=== PATIENT | female | born 1950 | race Caucasian/White ===

== ENCOUNTER → 2017-01-07 | Outpatient (CLI) | payer MEDICARE, MEDICAID | LOC: RAD 10:11 | PROVIDERS: ATTEND Internal Medicine | DX: N18.9 Chronic kidney disease, unspecified (principal) | CPT/HCPCS: 76770 ==

== ENCOUNTER 2017-01-14 09:33 | Emergency (ER) | payer MEDICARE, MEDICAID ==
--- NOTE | 2017-01-14 10:33 | ER Document Report ---
ED Medical Screen (RME) - General Chief Complaint: Abdominal Pain Stated Complaint: ABDOMINAL PAIN Notes: Patient says that she's been experiencing pain in the right side of her abdomen since yesterday and it's getting worse. She denies nausea or vomiting or diarrhea. Has never had this particular pain before. Has not had any abdominal surgeries. No UTI symptoms. No fevers. PMH: Hypertension, NIDDM, on methadone. TRAVEL OUTSIDE OF THE [place] IN LAST 30 DAYS: No - Related Data Allergies/Adverse Reactions: tetracycline [Tetracycline] Allergy (Intermediate, Verified 01/14/17 09:50) VOMITING,DIZZINESS hydroxyzine HCl [From Vistaril] Allergy (Mild, Verified 01/14/17 09:50) ITHCY hydroxyzine pamoate [From Vistaril] Allergy (Mild, Verified 01/14/17 09:50) ITHCY SHELL FISH Allergy (Severe, Uncoded 01/14/17 09:50) Anaphylaxis FLU VACCINE Allergy (Mild, Uncoded 01/14/17 09:50) SICK Past Medical History - Past Medical History Cardiac Medical History: Reports: Hx Hypertension Denies: Hx Coronary Artery Disease, Hx Heart Attack Pulmonary Medical History: Reports: Hx Asthma, Hx Pneumonia - ABOUT 10 YEARS AGO Denies: Hx Bronchitis, Hx COPD Neurological Medical History: Denies: Hx Cerebrovascular Accident, Hx Seizures Renal/ Medical History: Denies: Hx Peritoneal Dialysis Musculoskeltal Medical History: Reports Hx Arthritis Past Surgical History: Denies: Hx Hysterectomy, Hx Pacemaker - Immunizations Hx Diphtheria, Pertussis, Tetanus Vaccination: No Physical Exam - Vital signs Vitals: Temp Pulse Resp BP Pulse Ox 98.2 F 79 20 132/84 H 97 01/14/17 09:50 01/14/17 09:50 01/14/17 09:50 01/14/17 09:50 01/14/17 09:50 Course - Vital Signs Vital signs: Temp Pulse Resp BP Pulse Ox 98.2 F 79 20 132/84 H 97 01/14/17 09:50 01/14/17 09:50 01/14/17 09:50 01/14/17 09:50 01/14/17 09:50
[2017-01-14 11:00] LABS: ABSOLUTE BASOPHILS # (AUTO) 0.1 10^3/uL (0.0-0.2); ABSOLUTE EOSINOPHILS # (AUTO) 0.2 10^3/uL (0.0-0.6); ABSOLUTE LYMPHOCYTES (AUTO) 3.3 10^3/uL (0.5-4.7); ABSOLUTE MONOCYTES (AUTO) 0.6 10^3/uL (0.1-1.4); ABSOLUTE NEUT (AUTO) 5.7 10^3/uL (1.7-8.2); BASOPHILS % (AUTO) 0.8 % (0-2); EOSINOPHILS % (AUTO) 2.4 % (0-6); HEMATOCRIT 39.9 % (36.0-47.0); HEMOGLOBIN 12.7 g/dL (12.0-15.5); HGB HCT DIFFERENCE -1.8; LYMPHOCYTES % (AUTO) 33.6 % (13-45); MEAN CORPUSCULAR HEMOGLOBIN 25.4 pg (27.0-33.4); MEAN CORPUSCULAR HGB CONC 31.8 g/dL (32.0-36.0); MEAN CORPUSCULAR VOLUME 80 fl (80-97); MONOCYTES % (AUTO) 6.1 % (3-13); RED CELL DISTRIBUTION WIDTH 16.2 % (11.5-14.0); SEGMENTED NEUTROPHILS % (AUTO) 57.1 % (42-78)
[2017-01-14 11:08] LABS: APPEARANCE,URINE CLEAR; BILIRUBIN,URINE NEGATIVE (NEGATIVE); GLUCOSE, URINE >=500 mg/dL (NEGATIVE); KETONES,URINE NEGATIVE (NEGATIVE); LEUKOCYTE ESTERASE,URINE NEGATIVE (NEGATIVE); NITRITE,URINE NEGATIVE (NEGATIVE); PROTEIN,URINE NEGATIVE (NEGATIVE); URINE SPECIFIC GRAVITY 1.012; UROBILINOGEN,URINE NEGATIVE mg/dL (<2.0)
[2017-01-14 11:15] LABS: ALANINE AMINOTRANSFERASE 39 U/L (9-52); ALBUMIN 4.2 g/dL (3.5-5.0); ALKALINE PHOSPHATASE 85 U/L (38-126); ANION GAP 17 (5-19); ASPARTATE AMINO TRANSFERASE 36 U/L (14-36); BILIRUBIN,DIRECT 0.3 mg/dL (0.0-0.4); BILIRUBIN,TOTAL 0.6 mg/dL (0.2-1.3); BLOOD UREA NITROGEN 30 mg/dL (7-20); CALCIUM 9.8 mg/dL (8.4-10.2); CARBON DIOXIDE 24 mmol/L (22-30); CHLORIDE 102 mmol/L (98-107); CREATININE RESULT 1.47 mg/dL (0.52-1.25); GLUCOSE 177 mg/dL (75-110); LIPASE 71.8 U/L (23-300); POTASSIUM 4.7 mmol/L (3.6-5.0); SODIUM 143.1 mmol/L (137-145); TOTAL PROTEIN 7.7 g/dL (6.3-8.2)
[2017-01-14] MEDS ORDERED: NORMAL SALINE 500 ML IV ONE (13:06)
--- NOTE | 2017-01-14 13:06 | ER Document Report ---
ED GI/ - General Mode of Arrival: Ambulatory Information source: Patient TRAVEL OUTSIDE OF THE [place] IN LAST 30 DAYS: No - HPI Patient complains to provider of: Abdominal pain - right sided Onset: Yesterday - y Location: RLQ, Right flank, Suprapubic Associated symptoms: Other - see notes above <DAVID HUNG - Last Filed: 01/14/17 17:16> <GARETH AVILA - Last Filed: 01/14/17 19:39> - General Chief Complaint: Abdominal Pain Stated Complaint: ABDOMINAL PAIN Notes: 67 year old female with no history of an abdominal surgery presents to the ED complaining of right sided abdominal pain that has gotten progressively worse since starting yesterday. Patient reports pain starts from her right supapubic region and wraps around to her right flank. Patient reports that the pain is exacerbated with movement, but not with standing. Patient reports her stool is looser than normal, but denies nausea, vomiting, fever, or dysuria. (DAVID HUNG) - Related Data Allergies/Adverse Reactions: tetracycline [Tetracycline] Allergy (Intermediate, Verified 01/14/17 09:50) VOMITING,DIZZINESS hydroxyzine HCl [From Vistaril] Allergy (Mild, Verified 01/14/17 09:50) ITHCY hydroxyzine pamoate [From Vistaril] Allergy (Mild, Verified 01/14/17 09:50) ITHCY SHELL FISH Allergy (Severe, Uncoded 01/14/17 09:50) Anaphylaxis FLU VACCINE Allergy (Mild, Uncoded 01/14/17 09:50) SICK Past Medical History - General Information source: Patient - Social History Smoking Status: Current Every Day Smoker Chew tobacco use (# tins/day): No Frequency of alcohol use: Rare Drug Abuse: None Family History: Reviewed & Not Pertinent Patient has suicidal ideation: No Patient has homicidal ideation: No - Past Medical History Cardiac Medical History: Reports: Hx Hypertension Pulmonary Medical History: Reports: Hx Asthma, Hx Pneumonia - ABOUT 10 YEARS AGO Renal/ Medical History: Denies: Hx Peritoneal Dialysis Musculoskeltal Medical History: Reports Hx Arthritis Past Surgical History: Denies: Hx Abdominal Surgery, Hx Hysterectomy, Hx Pacemaker - Immunizations Hx Diphtheria, Pertussis, Tetanus Vaccination: No Hx Pneumococcal Vaccination: 08/14/12 <DAVID HUNG - Last Filed: 01/14/17 17:16> Review of Systems - Review of Systems Constitutional: No symptoms reported. denies: Fever EENT: No symptoms reported Cardiovascular: No symptoms reported Respiratory: No symptoms reported Gastrointestinal: See HPI, Abdominal pain - right suprapubic that radiates to right flank, Diarrhea - looser than normal bowel movements. denies: Nausea, Vomiting Genitourinary: See HPI, Flank pain - right. denies: Dysuria Female Genitourinary: No symptoms reported Musculoskeletal: No symptoms reported Skin: No symptoms reported Hematologic/Lymphatic: No symptoms reported Neurological/Psychological: No symptoms reported -: Yes All other systems reviewed and negative <DAVID HUNG - Last Filed: 01/14/17 17:16> Physical Exam - General General appearance: Alert In distress: None - HEENT Head: Normocephalic, Atraumatic Eyes: Normal Extraocular movements intact: Yes Pupils: PERRL - Respiratory Respiratory status: No respiratory distress Breath sounds: Normal - Cardiovascular Rhythm: Regular Heart sounds: Normal auscultation - Abdominal Inspection: Normal Distension: No distension Tenderness: Tender - Right pelvis and SI joint is tender to palpate. - Back Back: Normal - Extremities General upper extremity: Normal inspection, Normal ROM General lower extremity: Normal inspection, Normal ROM, Normal weight bearing - Neurological Neuro grossly intact: Yes Cognition: Normal Orientation: AAOx4 Gerda Coma Scale Eye Opening: Spontaneous Tyler Coma Scale Verbal: Oriented Gerda Coma Scale Motor: Obeys Commands Gerda Coma Scale Total: 15 Speech: Normal - Psychological Associated symptoms: Normal affect, Normal mood - Skin Skin Temperature: Warm Skin Moisture: Dry Skin Color: Normal <DAVID HUNG - Last Filed: 01/14/17 17:16> Course - Laboratory Result Diagrams: 01/14/17 10:35 01/14/17 10:35 <DAVID HUNG - Last Filed: 01/14/17 17:16> - Laboratory Result Diagrams: 01/14/17 10:35 01/14/17 10:35 - Diagnostic Test Radiology reviewed: Reports reviewed <GARETH AVILA - Last Filed: 01/14/17 19:39> - Re-evaluation Re-evalutation: 01/14/17 14:46 Patient with no acute findings on blood work, urine, or CT. Appears well. Patient is going to go home and follow-up with her doctor. Stable for discharge. Patient feels well at this time. She is having pain with movement. Will be given a dose of Toradol prior to going home. Agrees with this plan (GARETH AVILA) - Vital Signs Vital signs: Temp Pulse Resp BP Pulse Ox 98.4 F 63 17 134/64 H 96 01/14/17 15:27 01/14/17 15:27 01/14/17 09:52 01/14/17 15:27 01/14/17 15:27 - Laboratory Laboratory results interpreted by me: 01/14/17 01/14/17 01/14/17 10:35 10:35 10:35 MCH 25.4 L MCHC 31.8 L RDW 16.2 H BUN 30 H Creatinine 1.47 H Est GFR ( Amer) 43 L Est GFR (Non-Af Amer) 35 L Glucose 177 H Urine Glucose (UA) >=500 H Discharge <DAVID HUNG - Last Filed: 01/14/17 17:16> <GARETH AVILA - Last Filed: 01/14/17 19:39> - Discharge Clinical Impression: Back pain Qualifiers: Back pain location: low back pain Chronicity: acute Back pain laterality: right Sciatica presence: without sciatica Qualified Code(s): M54.5 - Low back pain Abdominal pain Qualifiers: Abdominal location: right lower quadrant Qualified Code(s): R10.31 - Right lower quadrant pain Condition: Stable Disposition: HOME, SELF-CARE Instructions: Abdominal Pain ([facility]), Low Back Pain ([facility]) Additional Instructions: Please follow-up with your doctor this week. Referrals: RODRIGUEZ MENG MD [Primary Care Provider] - Follow up in 3-5 days Scribe Attestation: 01/14/17 19:39 I personally performed the services described in the documentation, reviewed and edited the documentation which was dictated to the scribe in my presence, and it accurately records my words and actions. (GARETH AVILA) Scribe Documentation - Scribe Written by Scribe:: Parish Liriano, 01/14/2017 1311 acting as scribe for :: Davie <DAVID HUNG - Last Filed: 01/14/17 17:16>
[2017-01-14] MEDS ORDERED: KETOROLAC TROMETHAMINE INJ/PF 30 MG/1 ML SDV IV ONE (15:09)
[2017-01-14 15:48] VITALS: BP 134/64
== END 2017-01-14 15:30 | disposition home or self-care (01) ==
LOC: ER 09:33
DX: R10.31 Right lower quadrant pain (principal); M54.5 Low back pain; R19.4 Change in bowel habit; I10 Essential (primary) hypertension; J45.909 Unspecified asthma, uncomplicated; F17.200 Nicotine dependence, unspecified, uncomplicated; Z88.1 Allergy status to other antibiotic agents; Z91.013 Allergy to seafood; Z88.8 Allergy status to other drugs, medicaments and biological substances
CPT/HCPCS: 99284; 96361; 96374; 36415; 83690; 85025; 80053; 81001; 74177; J1885

== ENCOUNTER → 2017-02-10 | Outpatient (CLI) | payer MEDICARE, MEDICAID | LOC: RAD 07:21 | PROVIDERS: ATTEND Internal Medicine | DX: R94.4 Abnormal results of kidney function studies (principal) | CPT/HCPCS: 76770 ==

== ENCOUNTER → 2017-06-17 | Outpatient (CLI) | payer MEDICARE, MEDICAID ==
--- NOTE | 2017-06-17 13:52 | EKG REPORT ---
SEVERITY:- NORMAL ECG - SINUS RHYTHM : Confirmed by: Sal Morel MD 17-Jun-2017 13:51:44
== END ==
LOC: OD 09:55
PROVIDERS: ATTEND Physician Assistant
DX: Z51.81 Encounter for therapeutic drug level monitoring (principal); Z79.891 Long term (current) use of opiate analgesic
CPT/HCPCS: 93005; 93010

== ENCOUNTER 2018-03-29 02:07 | Emergency (ER) | payer MEDICARE, MEDICAID ==
[2018-03-29 02:33] VITALS: BP 169/74
--- NOTE | 2018-03-29 03:02 | RADIOLOGY REPORT (SQ) ---
EXAM DESCRIPTION: XR FOOT 3 OR MORE VIEWS COMPLETED DATE/TME: 03/29/2018 00:00 CLINICAL HISTORY: 68 years Female, Pain s/p injury COMPARISON: None. Findings: Small plantar fascial enthesophyte. Bones, joints, and soft tissues of the XR LEFT FOOT 3 OR MORE VIEWS appear otherwise intact. IMPRESSION: No acute findings.
--- NOTE | 2018-03-29 05:58 | ER Document Report ---
ED Extremity Problem, Lower - General Chief Complaint: Foot Pain Stated Complaint: FOOT PAIN Time Seen by Provider: 03/29/18 05:39 Mode of Arrival: Ambulatory Information source: Patient Notes: Patient is a 68-year-old female who presents with complaint of left foot pain. Patient reports that the pain has been present for about 2 days and has associated bruising. Patient reports that she has short-term memory loss that she is unsure if she injured her foot. Patient is able to bear weight and is ambulating around the lobby. TRAVEL OUTSIDE OF THE [place] IN LAST 30 DAYS: No - Related Data Allergies/Adverse Reactions: tetracycline [Tetracycline] Allergy (Intermediate, Verified 01/14/17 09:50) VOMITING,DIZZINESS hydroxyzine HCl [From Vistaril] Allergy (Mild, Verified 01/14/17 09:50) ITHCY hydroxyzine pamoate [From Vistaril] Allergy (Mild, Verified 01/14/17 09:50) ITHCY SHELL FISH Allergy (Severe, Uncoded 01/14/17 09:50) Anaphylaxis FLU VACCINE Allergy (Mild, Uncoded 01/14/17 09:50) SICK Past Medical History - General Information source: Patient - Social History Smoking Status: Current Every Day Smoker Frequency of alcohol use: None Drug Abuse: None Family History: Reviewed & Not Pertinent - Past Medical History Cardiac Medical History: Reports: Hx Hypertension Denies: Hx Coronary Artery Disease, Hx Heart Attack Pulmonary Medical History: Reports: Hx Asthma, Hx Pneumonia - ABOUT 10 YEARS AGO Denies: Hx Bronchitis, Hx COPD Neurological Medical History: Denies: Hx Cerebrovascular Accident, Hx Seizures Endocrine Medical History: Reports: Hx Diabetes Mellitus Type 2 Renal/ Medical History: Denies: Hx Peritoneal Dialysis Musculoskeltal Medical History: Reports Hx Arthritis Past Surgical History: Denies: Hx Abdominal Surgery, Hx Hysterectomy, Hx Pacemaker - Immunizations Hx Diphtheria, Pertussis, Tetanus Vaccination: No Hx Pneumococcal Vaccination: 08/14/12 Review of Systems - Review of Systems Constitutional: No symptoms reported EENT: No symptoms reported Cardiovascular: No symptoms reported Respiratory: No symptoms reported Gastrointestinal: No symptoms reported Genitourinary: No symptoms reported Female Genitourinary: No symptoms reported Musculoskeletal: See HPI Skin: No symptoms reported Hematologic/Lymphatic: No symptoms reported Neurological/Psychological: No symptoms reported Physical Exam - Vital signs Vitals: Temp Pulse Resp BP Pulse Ox 99.9 F 105 H 20 169/74 H 95 03/29/18 02:31 03/29/18 02:31 03/29/18 02:03/29/18 02:03/29/18 02:31 - Notes Notes: PHYSICAL EXAMINATION: GENERAL: No acute distress noted, patient ambulating in and out of lobby with steady gait. LUNGS: Breath sounds clear to auscultation bilaterally and equal. No wheezes rales or rhonchi. HEART: Regular rate and rhythm without murmurs ABDOMEN: Soft, nontender, nondistended abdomen. No guarding, no rebound. No masses appreciated. Musculoskeletal: Normal range of motion, no pitting or edema. No cyanosis. Ecchymosis to left foot near medial malleolus. NEUROLOGICAL: Cranial nerves grossly intact. Normal speech, normal and steady gait. Normal sensory, motor exams PSYCH: Normal mood, normal affect. SKIN: Warm, Dry, normal turgor, no rashes or lesions noted. Course - Re-evaluation Re-evalutation: Patient's x-ray is negative for any acute fracture or dislocation. Patient currently rates pain 1/5. Cap refill less than 3 seconds, normal sensory and motor exams distal to area of ecchymosis. Patient will be given Isaiah wrap, ibuprofen will be instructed to use ice and elevation. Patient reports that she has an appointment for later this morning with Dr. Meng she has not seen him in 7 months. Patient is ambulating around the department with no distress. - Vital Signs Vital signs: Temp Pulse Resp BP Pulse Ox 99.9 F 105 H 20 169/74 H 95 03/29/18 02:31 03/29/18 02:31 03/29/18 02:03/29/18 02:03/29/18 02:31 Discharge - Discharge Clinical Impression: Foot pain, left Condition: Stable Disposition: HOME, SELF-CARE Additional Instructions: Foot Pain. Your xray today was normal. Use an isaiah wrap for comfort and support as needed. Take ibuprofen for pain and/or inflammation. Epsom salt soaks twice daily. Follow-up with your primary care provider this week as you have stated you are out of your medications and have not seen your primary care doctor in 7 months. Return to the emergency department if you develop leg swelling, chest pain or shortness of breath. Prescriptions: Ibuprofen 800 mg PO Q8 PRN #20 tablet PRN Reason: For Pain Referrals: RODRIGUEZ MENG MD [Primary Care Provider] - Follow up as needed
== END 2018-03-29 06:19 | disposition home or self-care (01) ==
LOC: ER 02:07
DX: M79.672 Pain in left foot (principal); F17.200 Nicotine dependence, unspecified, uncomplicated; I10 Essential (primary) hypertension; E11.9 Type 2 diabetes mellitus without complications; Z88.7 Allergy status to serum and vaccine; Z91.013 Allergy to seafood; Z90.710 Acquired absence of both cervix and uterus; Z95.0 Presence of cardiac pacemaker
CPT/HCPCS: 99283

== ENCOUNTER 2018-03-31 12:15 | Observation (INO) | payer MEDICARE, MEDICAID ==
[2018-03-31] MEDS: NORMAL SALINE 1000 ML 1,000 ML IV PRN ×2 (13:15→18:48)
[2018-03-31 14:17] LABS: HEMATOCRIT 38.8 % (36.0-47.0); HEMOGLOBIN 12.7 g/dL (12.0-15.5); MEAN CORPUSCULAR HEMOGLOBIN 26.6 pg (27.0-33.4); MEAN CORPUSCULAR HGB CONC 32.7 g/dL (32.0-36.0); MEAN CORPUSCULAR VOLUME 81 fl (80-97); PLATELET COUNT 213 10^3/uL (150-450); RED BLOOD COUNT 4.77 10^6/uL (3.72-5.28); WHITE BLOOD COUNT 11.2 10^3/uL (4.0-10.5)
[2018-03-31 14:38] LABS: ALANINE AMINOTRANSFERASE 35 U/L (9-52); ALBUMIN 4.2 g/dL (3.5-5.0); ALKALINE PHOSPHATASE 120 U/L (38-126); ANION GAP 15 (5-19); ASPARTATE AMINO TRANSFERASE 26 U/L (14-36); BILIRUBIN,DIRECT 0.5 mg/dL (0.0-0.4); BILIRUBIN,TOTAL 0.6 mg/dL (0.2-1.3); BLOOD UREA NITROGEN 27 mg/dL (7-20); CALCIUM 9.3 mg/dL (8.4-10.2); CARBON DIOXIDE 22 mmol/L (22-30); CHLORIDE 100 mmol/L (98-107); LIPASE 123.9 U/L (23-300); POTASSIUM 4.7 mmol/L (3.6-5.0); TOTAL PROTEIN 7.3 g/dL (6.3-8.2)
[2018-03-31 14:44] LABS: GLUCOSE 392 mg/dL (75-110)
[2018-03-31] MEDS ORDERED: DEXTROSE 50%-WATER SYRINGE 25 GM/50 ML DOSE IV PRN (15:01)
[2018-03-31] MEDS ORDERED: DEXTROSE 40% GEL 15 GM TUBE X 2 PO PRN (15:01)
[2018-03-31] MEDS ORDERED: DEXTROSE 40% GEL 15 GM TUBE PO PRN (15:01)
[2018-03-31] MEDS ORDERED: DEXTROSE 50%-WATER SYRINGE 12.5 GM/25 ML DOSE IV PRN (15:01)
[2018-03-31] MEDS ORDERED: GLUCAGON,HUMAN RECOMB 1 MG INJ IM PRN (15:01)
--- NOTE | 2018-03-31 15:40 | RADIOLOGY REPORT (SQ) ---
EXAM DESCRIPTION: CHEST 2 VIEWS COMPLETED DATE/TIME: 03/31/2018 3:20 pm REASON FOR STUDY: cough COMPARISON: 07/10/2016 EXAM PARAMETERS: NUMBER OF VIEWS: two views TECHNIQUE: Digital Frontal and Lateral radiographic views of the chest acquired. RADIATION DOSE: NA LIMITATIONS: none FINDINGS: LUNGS AND PLEURA: No opacities, masses or pneumothorax. No pleural effusion. MEDIASTINUM AND HILAR STRUCTURES: No masses or contour abnormalities. HEART AND VASCULAR STRUCTURES: Heart normal size. No evidence for failure. BONES: No acute findings. HARDWARE: None in the chest. OTHER: No other significant finding. IMPRESSION: NO ACUTE RADIOGRAPHIC FINDING IN THE CHEST. TECHNICAL DOCUMENTATION: JOB ID: [id number] [employer]- All Rights Reserved Reading location - IP/workstation name: [email or web address]
[2018-03-31] MEDS: INSULIN LISPRO 100 UNIT/ML 3 ML VIAL SUBCUT PRN ×2 (18:08→22:46)
[2018-03-31] MEDS ORDERED: CYCLOBENZAPRINE HCL 10 MG TABLET PO PRN (18:17)
[2018-03-31] MEDS ORDERED: (PENDING PHARMACY ID) (Magnesium Oxide [Magnesium] 500 MG) PO SCH (18:30)
[2018-03-31] MEDS ORDERED: MOEXIPRIL HCL 15 MG PO SCH (18:30)
[2018-03-31] MEDS ORDERED: (PENDING PHARMACY ID) (Dapagliflozin Propanediol [Farxiga] 10 MG) PO SCH ×2 (18:30→19:00)
[2018-03-31] MEDS ORDERED: NICOTINE POLACRILEX 2 MG PO SCH ×2 (19:00)
[2018-03-31] MEDS: METFORMIN HCL 500 MG TABLET PO SCH (19:54)
--- NOTE | 2018-03-31 21:18 | PDOC H&P ---
History of Present Illness Admission Date/PCP: 03/31/18 12:15 RODRIGUEZ MENG MD History of Present Illness: KRYSTAL ADORNO is a 68 year old female, Patient is noncompliant with her diabetic care, she came to the office for the first time this year for evaluation after she sustained a fall, the blood work revealed serum glucose was over 400, she is admitted essentially for hydration and for observation.There is associated acute kidney injury Past Medical History Cardiac Medical History: Reports: Hypertension Pulmonary Medical History: Reports: Asthma, Pneumonia - ABOUT 10 YEARS AGO Endocrine Medical History: Reports: Diabetes Mellitus Type 2 Musculoskeltal Medical History: Reports: Arthritis Hematology: Reports: Anemia - >40 YEARS AGO Social History Smoking Status: Current Some Day Smoker Number of Years Smokin Last Time Smoked: 03/30/2018 Frequency of Alcohol Use: Occasional Hx Recreational Drug Use: Yes Drugs: Methadone Hx Prescription Drug Abuse: No Family History Family History: Reviewed & Not Pertinent Parental Family History Reviewed: Yes Children Family History Reviewed: Yes Sibling(s) Family History Reviewed.: Yes Medication/Allergy Home Medications: Cholecalciferol (Vitamin D3) [Vitamin D3 5000 unit Capsule] 5,000 unit PO DAILY 03/31/18 Cyclobenzaprine HCl [Flexeril 10 mg Tablet] 10 mg PO DAILYP PRN 03/31/18 Dapagliflozin Propanediol [Farxiga] 10 mg PO DAILY 03/31/18 Glipizide [Glucotrol Xl 2.5 mg Tab.er] 2.5 mg PO DAILY 03/31/18 Hydrochlorothiazide [Hydrodiuril 25 mg Tablet] 25 mg PO DAILY 03/31/18 Magnesium Oxide [Magnesium] 500 mg PO DAILY 03/31/18 Metformin HCl [Glucophage 500 mg Tablet] 500 mg PO 5XD 03/31/18 Methadone HCl [Dolophine 10 mg Tablet] 50 mg PO DAILY 03/31/18 Moexipril HCl 15 mg PO [id number] 03/31/18 Nicotine Polacrilex [Nicotine Gum] 2 mg PO 5XD 03/31/18 Pregabalin [Lyrica 75 mg Capsule] 75 mg PO Q6 03/31/18 Sitagliptin Phosphate [Januvia] 100 mg PO DAILY 03/31/18 Allergies/Adverse Reactions: tetracycline [Tetracycline] Allergy (Intermediate, Verified 01/14/17 09:50) VOMITING,DIZZINESS hydroxyzine HCl [From Vistaril] Allergy (Mild, Verified 01/14/17 09:50) ITHCY hydroxyzine pamoate [From Vistaril] Allergy (Mild, Verified 01/14/17 09:50) ITHCY SHELL FISH Allergy (Severe, Uncoded 01/14/17 09:50) Anaphylaxis FLU VACCINE Allergy (Mild, Uncoded 01/14/17 09:50) SICK Review of Systems Constitutional: ABSENT: chills, fever(s), headache(s), weight gain, weight loss Eyes: ABSENT: visual disturbances Ears: ABSENT: hearing changes Cardiovascular: ABSENT: chest pain, dyspnea on exertion, edema, orthropnea, palpitations Respiratory: ABSENT: cough, hemoptysis Gastrointestinal: ABSENT: abdominal pain, constipation, diarrhea, hematemesis, hematochezia, nausea, vomiting Genitourinary: ABSENT: dysuria, hematuria Musculoskeletal: PRESENT: back pain. ABSENT: joint swelling Integumentary: ABSENT: rash, wounds Neurological: ABSENT: abnormal gait, abnormal speech, confusion, dizziness, focal weakness, syncope Psychiatric: ABSENT: anxiety, depression, homidical ideation, suicidal ideation Endocrine: PRESENT: polyuria. ABSENT: cold intolerance, heat intolerance, menstrual abnormalities, polydipsia Hematologic/Lymphatic: ABSENT: easy bleeding, easy bruising, lymphadenopathy Physical Exam Vital Signs: Temp Pulse Resp BP Pulse Ox 98.4 F 92 16 126/60 H 93 03/31/18 16:07 03/31/18 16:07 03/31/18 16:07 03/31/18 16:07 03/31/18 16:07 Intake & Output 03/30/18 03/31/18 04/01/18 06:59 06:59 06:59 Intake Total 737 Balance 737 Weight 88.451 kg General appearance: PRESENT: no acute distress, well-developed, well-nourished Head exam: PRESENT: atraumatic, normocephalic Eye exam: PRESENT: conjunctiva pink, EOMI, PERRLA Ear exam: PRESENT: normal external ear exam Mouth exam: PRESENT: moist, tongue midline Neck exam: PRESENT: full ROM Respiratory exam: PRESENT: clear to auscultation valaire Cardiovascular exam: PRESENT: RRR, +S1, +S2 Pulses: PRESENT: normal dorsalis pedis pul, +2 pedal pulses bilateral Vascular exam: PRESENT: normal capillary refill GI/Abdominal exam: PRESENT: normal bowel sounds, soft Rectal exam: PRESENT: deferred Neurological exam: PRESENT: alert, awake, oriented to person, oriented to place , oriented to time, oriented to situation, CN II-XII grossly intact Psychiatric exam: PRESENT: appropriate affect, normal mood Skin exam: PRESENT: dry, intact, warm Results Laboratory Results: 03/31/18 14:03 03/31/18 14:03 03/31/18 03/31/18 14:03 14:03 WBC 11.2 H RBC 4.77 Hgb 12.7 Hct 38.8 MCV 81 MCH 26.6 L MCHC 32.7 RDW 15.0 H Plt Count 213 Sodium 137.0 Potassium 4.7 Chloride 100 Carbon Dioxide 22 Anion Gap 15 BUN 27 H Creatinine 1.50 H Est GFR ( Amer) 42 L Est GFR (Non-Af Amer) 34 L Glucose 392 H Calcium 9.3 Total Bilirubin 0.6 AST 26 ALT 35 Alkaline Phosphatase 120 Total Protein 7.3 Albumin 4.2 Lipase 123.9 Impressions: Chest X-Ray 03/31/18 00:00 IMPRESSION: NO ACUTE RADIOGRAPHIC FINDING IN THE CHEST. 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
[2018-03-31] MEDS: PREGABALIN 75 MG CAPSULE PO SCH (22:43)
[2018-04-01] MEDS: NORMAL SALINE 1000 ML 1,000 ML IV PRN ×3 (06:38→20:21)
[2018-04-01] MEDS: PREGABALIN 75 MG CAPSULE PO SCH ×3 (06:42→17:49)
[2018-04-01] MEDS: METFORMIN HCL 500 MG TABLET PO SCH ×5 (07:40→19:36)
[2018-04-01] MEDS: ENALAPRIL MALEATE 10 MG TABLET PO SCH (08:50)
[2018-04-01 09:22] LABS: ALANINE AMINOTRANSFERASE 36 U/L (9-52); ALBUMIN 2.9 g/dL (3.5-5.0); ALKALINE PHOSPHATASE 81 U/L (38-126); ANION GAP 6 (5-19); ASPARTATE AMINO TRANSFERASE 41 U/L (14-36); BILIRUBIN,DIRECT 0.4 mg/dL (0.0-0.4); BILIRUBIN,TOTAL 0.5 mg/dL (0.2-1.3); BLOOD UREA NITROGEN 25 mg/dL (7-20); CALCIUM 8.4 mg/dL (8.4-10.2); CARBON DIOXIDE 28 mmol/L (22-30); CHLORIDE 104 mmol/L (98-107); GLUCOSE 142 mg/dL (75-110); POTASSIUM 4.5 mmol/L (3.6-5.0); SODIUM 138.1 mmol/L (137-145); TOTAL PROTEIN 5.7 g/dL (6.3-8.2)
[2018-04-01] MEDS ORDERED: METHADONE HCL 10 MG TABLET PO SCH (10:00)
[2018-04-01] MEDS ORDERED: MAGNESIUM OXIDE 400 MG TABLET PO SCH (10:00)
[2018-04-01] MEDS ORDERED: GLIPIZIDE XL 2.5 MG TAB.ER.24 PO SCH (10:00)
[2018-04-01] MEDS ORDERED: SITAGLIPTIN PHOSPHATE 50 MG TABLET PO SCH (10:00)
[2018-04-01] MEDS ORDERED: CHOLECALCIFEROL (D3) 1,000 UNIT TABLET PO SCH (10:00)
[2018-04-01] MEDS ORDERED: HYDROCHLOROTHIAZIDE 25 MG TABLET PO SCH (10:00)
[2018-04-01] MEDS: INSULIN LISPRO 100 UNIT/ML 3 ML VIAL SUBCUT PRN ×2 (13:39→23:53)
[2018-04-01 19:05] LABS: ALANINE AMINOTRANSFERASE 39 U/L (9-52); ALBUMIN 3.4 g/dL (3.5-5.0); ALKALINE PHOSPHATASE 88 U/L (38-126); ANION GAP 8 (5-19); ASPARTATE AMINO TRANSFERASE 42 U/L (14-36); BILIRUBIN,DIRECT 0.4 mg/dL (0.0-0.4); BILIRUBIN,TOTAL 0.4 mg/dL (0.2-1.3); BLOOD UREA NITROGEN 24 mg/dL (7-20); CALCIUM 8.7 mg/dL (8.4-10.2); CARBON DIOXIDE 27 mmol/L (22-30); CHLORIDE 105 mmol/L (98-107); GLUCOSE 140 mg/dL (75-110); POTASSIUM 5.4 mmol/L (3.6-5.0); SODIUM 140.1 mmol/L (137-145); TOTAL PROTEIN 6.5 g/dL (6.3-8.2)
--- NOTE | 2018-04-01 21:16 | PDOC DISCHARGE SUMMARY ---
General - Admit/Disc Date/PCP Admission Date/Primary Care Provider: 03/31/18 12:15 RODRIGUEZ MENG MD Discharge Date: 04/01/18 - Discharge Diagnosis (1) Diabetes mellitus Is this a current diagnosis for this admission?: Yes - Additional Information Home Medications: Cholecalciferol (Vitamin D3) [Vitamin D3 5000 unit Capsule] 5,000 unit PO DAILY 03/31/18 Cyclobenzaprine HCl [Flexeril 10 mg Tablet] 10 mg PO DAILYP PRN 03/31/18 Dapagliflozin Propanediol [Farxiga] 10 mg PO DAILY 03/31/18 Glipizide [Glucotrol Xl 2.5 mg Tab.er] 2.5 mg PO DAILY 03/31/18 Hydrochlorothiazide [Hydrodiuril 25 mg Tablet] 25 mg PO DAILY 03/31/18 Magnesium Oxide [Magnesium] 500 mg PO DAILY 03/31/18 Metformin HCl [Glucophage 500 mg Tablet] 500 mg PO 5XD 03/31/18 Methadone HCl [Dolophine 10 mg Tablet] 50 mg PO DAILY 03/31/18 Moexipril HCl 15 mg PO [id number] 03/31/18 Nicotine Polacrilex [Nicotine Gum] 2 mg PO 5XD 03/31/18 Pregabalin [Lyrica 75 mg Capsule] 75 mg PO Q6 03/31/18 Sitagliptin Phosphate [Januvia] 100 mg PO DAILY 03/31/18 History of Present Illness History of Present Illness: KRYSTAL ADORNO is a 68 year old female, Patient is noncompliant with her diabetic care, she came to the office for the first time this year for evaluation after she sustained a fall, the blood work revealed serum glucose was over 400, she is admitted essentially for hydration and for observation.There is associated acute kidney injury Hospital Course Hospital Course: Patient was admitted for the management of uncontrolled diabetes associated with dehydration and acute kidney injury, she was brought in for observation she was given normal saline essentially for hydration Physical Exam Vital Signs: Temp Pulse Resp BP Pulse Ox 98.3 F 79 16 130/63 H 96 04/01/18 19:28 04/01/18 19:28 04/01/18 19:28 04/01/18 19:28 04/01/18 19:28 Intake & Output 03/31/18 04/01/18 04/02/18 06:59 06:59 06:59 Intake Total 1537 Balance 1537 Weight 93.7 kg General appearance: PRESENT: no acute distress, well-developed, well-nourished Head exam: PRESENT: atraumatic, normocephalic Eye exam: PRESENT: conjunctiva pink, EOMI, PERRLA Ear exam: PRESENT: normal external ear exam Mouth exam: PRESENT: moist, tongue midline Neck exam: PRESENT: full ROM Respiratory exam: PRESENT: clear to auscultation valarie Cardiovascular exam: PRESENT: RRR, +S1 Pulses: PRESENT: normal dorsalis pedis pul, +2 pedal pulses bilateral Vascular exam: PRESENT: normal capillary refill GI/Abdominal exam: PRESENT: normal bowel sounds, soft Rectal exam: PRESENT: deferred Neurological exam: PRESENT: alert, awake, oriented to person, oriented to place , oriented to time, oriented to situation, CN II-XII grossly intact Psychiatric exam: PRESENT: appropriate affect, normal mood Skin exam: PRESENT: dry, intact, warm. ABSENT: cyanosis, rash Results Laboratory Results: 03/31/18 14:03 04/01/18 18:25 04/01/18 04/01/18 08:44 18:25 Sodium 138.1 140.1 Potassium 4.5 5.4 H Chloride 104 105 Carbon Dioxide 28 27 Anion Gap 6 8 BUN 25 H 24 H Creatinine 1.57 H 1.39 H Est GFR ( Amer) 40 L 45 L Est GFR (Non-Af Amer) 33 L 38 L Glucose 142 H 140 H Calcium 8.4 8.7 Total Bilirubin 0.5 0.4 AST 41 H 42 H ALT 36 39 Alkaline Phosphatase 81 88 Total Protein 5.7 L 6.5 Albumin 2.9 L 3.4 L Impressions: Chest X-Ray 03/31/18 00:00 IMPRESSION: NO ACUTE RADIOGRAPHIC FINDING IN THE CHEST. Qualifiers - * PATIENT BEING DISCHARGED WITH ANY OF THE FOLLOWING DIAGNOSIS: No VTE patient discharged on overlapping Therapy?: Yes
[2018-04-02] MEDS: NORMAL SALINE 1000 ML 1,000 ML IV PRN (01:45)
[2018-04-02] MEDS: PREGABALIN 75 MG CAPSULE PO SCH ×2 (06:08)
[2018-04-02] MEDS: METFORMIN HCL 500 MG TABLET PO SCH (06:08)
[2018-04-02] MEDS: INSULIN LISPRO 100 UNIT/ML 3 ML VIAL SUBCUT PRN (08:04)
[2018-04-02] MEDS: ENALAPRIL MALEATE 10 MG TABLET PO SCH (08:04)
[2018-04-02 09:23] VITALS: BP 115/48
== END 2018-04-02 09:36 | disposition home or self-care (01) ==
LOC: 2S 12:15
PROVIDERS: ADMIT Internal Medicine; ATTEND Internal Medicine
DX: N17.9 Acute kidney failure, unspecified (principal); E11.65 Type 2 diabetes mellitus with hyperglycemia; E86.0 Dehydration; F17.210 Nicotine dependence, cigarettes, uncomplicated; M54.9 Dorsalgia, unspecified; R05 Cough; I10 Essential (primary) hypertension; W19.XXXA Unspecified fall, initial encounter; Z91.14 Patient's other noncompliance with medication regimen; Z87.01 Personal history of pneumonia (recurrent)
CPT/HCPCS: 36415 ×2; 82962 ×3; 83690; 85027; 80076; 80048; 80053; 83036; 71046; G0378 ×3; G0379; A9270 ×11; J7030 ×3; J1815; J3490

== ENCOUNTER → 2018-05-23 | Outpatient (CLI) | payer MEDICARE, MEDICAID ==
--- NOTE | 2018-05-23 20:38 | EKG REPORT ---
SEVERITY:- NORMAL ECG - NONSPECIFIC ST-T CHANGES ANTERIOR LEADS SINUS RHYTHM : Confirmed by: Sal Morel MD 23-May-2018 20:37:47
== END ==
LOC: OD 14:50
PROVIDERS: ATTEND Physician Assistant
DX: G89.4 Chronic pain syndrome (principal); Z79.891 Long term (current) use of opiate analgesic
CPT/HCPCS: 93005; 36415; 93010; G0480; 80358

== ENCOUNTER 2018-07-02 17:12 | Emergency (ER) | payer MEDICARE, MEDICAID ==
--- NOTE | 2018-07-02 19:12 | ER Document Report ---
ED Medical Screen (RME) - General Chief Complaint: Numbness of Arm Stated Complaint: ARM NUMBNESS Notes: 68-year-old Morris Delgado to the emergency department for evaluation of right lymph wrist. Numbness in her right forearm. States that she has been in a penitentiary for a week and woke up today with this symptom. Patient smokes. Has hypertension. Has diabetes. Denies any chest pain or shortness of breath at this time. Does state that she needs something for her chronic pain at this time because she normally takes her pain medication at this time. I have greeted and performed a rapid initial assessment of this patient. A comprehensive ED assessment and evaluation of the patient, analysis of test results and completion of the medical decision making process will be conducted by additional ED providers. TRAVEL OUTSIDE OF THE [place] IN LAST 30 DAYS: No - Related Data Allergies/Adverse Reactions: tetracycline [Tetracycline] Allergy (Intermediate, Verified 01/14/17 09:50) VOMITING,DIZZINESS hydroxyzine HCl [From Vistaril] Allergy (Mild, Verified 01/14/17 09:50) ITHCY hydroxyzine pamoate [From Vistaril] Allergy (Mild, Verified 01/14/17 09:50) ITHCY SHELL FISH Allergy (Severe, Uncoded 01/14/17 09:50) Anaphylaxis FLU VACCINE Allergy (Mild, Uncoded 01/14/17 09:50) SICK Past Medical History - Social History Chew tobacco use (# tins/day): No Drug Abuse: None - Past Medical History Cardiac Medical History: Reports: Hx Hypertension Denies: Hx Coronary Artery Disease, Hx Heart Attack Pulmonary Medical History: Reports: Hx Asthma, Hx Pneumonia - ABOUT 10 YEARS AGO Denies: Hx Bronchitis, Hx COPD Neurological Medical History: Denies: Hx Cerebrovascular Accident, Hx Seizures Endocrine Medical History: Reports: Hx Diabetes Mellitus Type 2 Renal/ Medical History: Denies: Hx Peritoneal Dialysis Musculoskeltal Medical History: Reports Hx Arthritis Psychiatric Medical History: Denies: Hx Depression Past Surgical History: Denies: Hx Abdominal Surgery, Hx Hysterectomy, Hx Pacemaker - Immunizations Hx Diphtheria, Pertussis, Tetanus Vaccination: No History of Influenza Vaccine for 07/2017 - 12/2017 Season: Refused Physical Exam - Vital signs Vitals: Temp Pulse Resp BP Pulse Ox 99.3 F 98 16 127/55 H 95 07/02/18 17:37 07/02/18 17:37 07/02/18 17:37 07/02/18 17:37 07/02/18 17:37 Course - Vital Signs Vital signs: Temp Pulse Resp BP Pulse Ox 99.3 F 98 16 127/55 H 95 07/02/18 17:37 07/02/18 17:37 07/02/18 17:37 07/02/18 17:37 07/02/18 17:37 Doctor's Discharge - Discharge Referrals: GRIFFIN VICKERS [facility]ero[facility] [Primary Care Provider] - Follow up as needed
--- NOTE | 2018-07-02 20:08 | RADIOLOGY REPORT (SQ) ---
EXAM DESCRIPTION: CT HEAD WITHOUT COMPLETED DATE/TIME: 07/02/2018 7:59 pm REASON FOR STUDY: right wrist weakness and numbness COMPARISON: None. TECHNIQUE: Axial images acquired through the brain without intravenous contrast. Images reviewed wi th bone, brain and subdural windows. Additional sagittal and coronal reconstructions were generated. Images stored on PACS. All CT scanners at this facility use dose modulation, iterative reconstruction, and/or weight based d osing when appropriate to reduce radiation dose to as low as reasonably achievable (ALARA). [facility]: Dose Right [facility]: CareDose [facility]: Dose Right [facility]: Teradose 4D [facility]: Smart [employer] RADIATION DOSE: CT Rad equipment meets quality standard of care and radiation dose reduction techniq ues were employed. CTDIvol: 53.2 mGy. DLP: 964 mGy-cm. mGy. LIMITATIONS: None. FINDINGS: VENTRICLES: Normal size and contour. CEREBRUM: No masses. No hemorrhage. No midline shift. No evidence for acute infarction. Normal gra y/white matter differentiation. No areas of low density in the white matter. CEREBELLUM: No masses. No hemorrhage. No alteration of density. No evidence for acute infarction. EXTRAAXIAL SPACES: No fluid collections. No masses. ORBITS AND GLOBE: No intra- or extraconal masses. Normal contour of globe without masses. CALVARIUM: No fracture. PARANASAL SINUSES: No fluid or mucosal thickening. SOFT TISSUES: No mass or hematoma. OTHER: No other significant finding. IMPRESSION: NORMAL BRAIN CT WITHOUT CONTRAST. EVIDENCE OF ACUTE STROKE: NO. COMMENT: Quality ID # [id number]: Final reports with documentation of one or more dose reduction techniques (e.g., Automated exposure control, adjustment of the mA and/or kV according to patient size, use of iterative reconstruction technique) TECHNICAL DOCUMENTATION: JOB ID: [id number] [employer]- All Rights Reserved Reading location - IP/workstation name: [email or web address]
[2018-07-02 20:13] LABS: ABSOLUTE BASOPHILS # (AUTO) 0.1 10^3/uL (0.0-0.2); ABSOLUTE EOSINOPHILS # (AUTO) 0.1 10^3/uL (0.0-0.6); ABSOLUTE LYMPHOCYTES (AUTO) 2.9 10^3/uL (0.5-4.7); ABSOLUTE MONOCYTES (AUTO) 0.8 10^3/uL (0.1-1.4); ABSOLUTE NEUT (AUTO) 6.2 10^3/uL (1.7-8.2); BASOPHILS % (AUTO) 0.8 % (0-2); EOSINOPHILS % (AUTO) 1.4 % (0-6); HEMATOCRIT 38.9 % (36.0-47.0); HEMOGLOBIN 12.7 g/dL (12.0-15.5); LYMPHOCYTES % (AUTO) 28.3 % (13-45); MEAN CORPUSCULAR HEMOGLOBIN 26.1 pg (27.0-33.4); MEAN CORPUSCULAR HGB CONC 32.7 g/dL (32.0-36.0); MEAN CORPUSCULAR VOLUME 80 fl (80-97); MONOCYTES % (AUTO) 7.9 % (3-13); PLATELET COUNT 201 10^3/uL (150-450); RED BLOOD COUNT 4.87 10^6/uL (3.72-5.28); RED CELL DISTRIBUTION WIDTH 16.5 % (11.5-14.0); SEGMENTED NEUTROPHILS % (AUTO) 61.6 % (42-78); TOTAL CELLS COUNTED % (AUTO) 100 %; WHITE BLOOD COUNT 10.1 10^3/uL (4.0-10.5)
[2018-07-02 21:29] LABS: ALANINE AMINOTRANSFERASE 34 U/L (9-52); ALBUMIN 3.9 g/dL (3.5-5.0); ALKALINE PHOSPHATASE 97 U/L (38-126); ANION GAP 12 (5-19); ASPARTATE AMINO TRANSFERASE 24 U/L (14-36); BILIRUBIN,DIRECT 0.4 mg/dL (0.0-0.4); BILIRUBIN,TOTAL 0.4 mg/dL (0.2-1.3); BLOOD UREA NITROGEN 54 mg/dL (7-20); CALCIUM 9.2 mg/dL (8.4-10.2); CARBON DIOXIDE 22 mmol/L (22-30); CHLORIDE 103 mmol/L (98-107); GLUCOSE 190 mg/dL (75-110); POTASSIUM 4.9 mmol/L (3.6-5.0); SODIUM 136.8 mmol/L (137-145); TOTAL PROTEIN 7.3 g/dL (6.3-8.2)
[2018-07-02] MEDS ORDERED: PREDNISONE 20 MG TABLET PO ONE (21:36)
[2018-07-02] MEDS ORDERED: GLIPIZIDE 10 MG TABLET PO ONE (21:41)
--- NOTE | 2018-07-02 21:56 | ER Document Report ---
ED General - General Chief Complaint: Numbness of Arm Stated Complaint: ARM NUMBNESS Time Seen by Provider: 07/02/18 19:21 Notes: Patient is a 68-year-old female with a past medical history of diabetes, chronic kidney disease, hypertension who presents with inability to extend her right wrist as well as numbness and tingling over her dorsal forearm and the dorsum of her right hand. She is right-hand dominant. She states that the symptoms have been present since she woke up this morning. She states that she slept in a wheelchair at a [facility] for most of the evening last night. No history of similar symptoms in the past. Nothing improves or worsens her symptoms. She has been unable to see her primary care doctor regarding today's concerns. She denies any weakness or numbness to any other location of her body. No trauma to the elbow. TRAVEL OUTSIDE OF THE [place] IN LAST 30 DAYS: No - Related Data Allergies/Adverse Reactions: tetracycline [Tetracycline] Allergy (Intermediate, Verified 01/14/17 09:50) VOMITING,DIZZINESS hydroxyzine HCl [From Vistaril] Allergy (Mild, Verified 01/14/17 09:50) ITHCY hydroxyzine pamoate [From Vistaril] Allergy (Mild, Verified 01/14/17 09:50) ITHCY SHELL FISH Allergy (Severe, Uncoded 01/14/17 09:50) Anaphylaxis FLU VACCINE Allergy (Mild, Uncoded 01/14/17 09:50) SICK Past Medical History - General Information source: Patient - Social History Smoking Status: Current Every Day Smoker Chew tobacco use (# tins/day): No Frequency of alcohol use: None Drug Abuse: None Lives with: Family Family History: Reviewed & Not Pertinent Patient has suicidal ideation: No Patient has homicidal ideation: No - Past Medical History Cardiac Medical History: Reports: Hx Hypertension Denies: Hx Coronary Artery Disease, Hx Heart Attack Pulmonary Medical History: Reports: Hx Asthma, Hx Pneumonia - ABOUT 10 YEARS AGO Denies: Hx Bronchitis, Hx COPD Neurological Medical History: Denies: Hx Cerebrovascular Accident, Hx Seizures Endocrine Medical History: Reports: Hx Diabetes Mellitus Type 2 Renal/ Medical History: Denies: Hx Peritoneal Dialysis Musculoskeletal Medical History: Reports Hx Arthritis Psychiatric Medical History: Denies: Hx Depression Past Surgical History: Denies: Hx Abdominal Surgery, Hx Hysterectomy, Hx Pacemaker - Immunizations Hx Diphtheria, Pertussis, Tetanus Vaccination: No Hx Pneumococcal Vaccination: 08/14/12 Review of Systems - Review of Systems Notes: Constitutional: Negative for fever. HENT: Negative for sore throat. Eyes: Negative for visual changes. Cardiovascular: Negative for chest pain. Respiratory: Negative for shortness of breath. Gastrointestinal: Negative for abdominal pain, vomiting or diarrhea. Genitourinary: Negative for dysuria. Musculoskeletal: Negative for back pain. Skin: Negative for rash. Neurological: Positive for inability to extend the right wrist and paresthesias of the right dorsum of the hand 10 point ROS negative except as marked above and in HPI. Physical Exam - Vital signs Vitals: Temp Pulse Resp BP Pulse Ox 99.3 F 98 16 127/55 H 95 07/02/18 17:37 07/02/18 17:37 07/02/18 17:37 07/02/18 17:37 07/02/18 17:37 Interpretation: Normal Notes: PHYSICAL EXAMINATION: GENERAL: Well-appearing, well-nourished and in no acute distress. HEAD: Atraumatic, normocephalic. EYES: Pupils equal round and reactive to light, extraocular movements intact, sclera anicteric, conjunctiva are normal. ENT: nares patent, oropharynx clear without exudates. Moist mucous membranes. NECK: Normal range of motion, supple without lymphadenopathy LUNGS: Breath sounds clear to auscultation bilaterally and equal. No wheezes rales or rhonchi. HEART: Regular rate and rhythm without murmurs ABDOMEN: Soft, nontender, normoactive bowel sounds. No guarding, no rebound. No masses appreciated. EXTREMITIES: Normal range of motion, no pitting or edema. No cyanosis. NEUROLOGICAL: Face symmetric. Tongue protrudes midline. Extraocular motions intact. Pupils are 2 mm and equally reactive. Normal speech, normal gait. 5 out of 5 strength in both the distal and proximal upper and lower extremities bilaterally. Sensation is grossly intact throughout. Patient is unable to extend the right wrist. She is unable to extend the right thumb. Radial nerve distribution sensation diminished on the right. PSYCH: Normal mood, normal affect. SKIN: Warm, Dry, normal turgor, no rashes or lesions noted. Course - Re-evaluation Re-evalutation: 07/02/18 21:43 Patient presents with a classic history and exam for radial nerve palsy. I do not believe there is an acute stroke. The patient has a wrist drop on the right side, has a sensory and motor distribution consistent with the radial nerve being impaired. Her history of sleeping in a wheelchair with her arm being compressed against the rail would give this presentation. She has been placed in a cockup splint. Unfortunately cannot place her on NSAIDs due to her renal dysfunction so will start her on a brief course of steroids. The patient' s renal function is worse than baseline and I have informed the patient and her family of this finding, provided him with a copy of her laboratories and instructed them to follow-up to ensure that the kidney function returns to her baseline. Right elbow x-ray without any evidence of fracture. At this time will discharge with return precautions and follow-up recommendations. Verbal discharge instructions given a the bedside and opportunity for questions given. Medication warnings reviewed. Patient is in agreement with this plan and has verbalized understanding of return precautions and the need for primary care follow-up in the next 24-72 hours. - Vital Signs Vital signs: Temp Pulse Resp BP Pulse Ox 98 F 90 18 136/75 H 95 07/02/18 23:00 07/02/18 21:26 07/02/18 23:01 07/02/18 23:00 07/02/18 23:01 - Laboratory Result Diagrams: 07/02/18 19:47 07/02/18 20:55 Laboratory results interpreted by me: 07/02/18 07/02/18 19:47 20:55 MCH 26.1 L RDW 16.5 H Sodium 136.8 L BUN 54 H Creatinine 2.29 H Est GFR ( Amer) 26 L Est GFR (Non-Af Amer) 21 L Glucose 190 H - Diagnostic Test Radiology reviewed: Image reviewed, Reports reviewed Radiology results interpreted by me: 07/02/18 22:04 Ct head: No mass or bleed Procedures - Immobilization Right Wrist Pre-Proc Neuro Vasc Exam: Normal Immobilizer type: Cock-up Performed by: Provider assisted Post-Proc Neuro Vasc Exam: Normal Alignment checked and good: Yes Discharge - Discharge Clinical Impression: Radial nerve palsy Qualifiers: Laterality: right Qualified Code(s): G56.31 - Lesion of radial nerve, right upper limb [id number] kidney injury Qualifiers: Acute renal failure type: unspecified Chronic kidney disease stage: unspecified stage Qualified Code(s): N17.9 - Acute kidney failure, unspecified Condition: Good Disposition: HOME, SELF-CARE Additional Instructions: Please follow-up with your primary doctor regarding your kidney function. It is worse today than it normally is and should be rechecked. Please be sure to drink plenty of fluids specifically water. Your glipizide has been represcribed. Due to her abnormal kidney function we cannot use an NSAID such as Mobic. We will instead give you prednisone for 5 days to help reduce the inflammation affecting the radial nerve which is why your wrist is dropping. You have not had a stroke. Return if you develop severe headache, worsening of your right arm pain or weakness, vomiting, or any other symptoms that are worrisome to you. Referrals: GRIFFIN VICKERS PA-C [ACTIVE STAFF] - Follow up in 3-5 days
--- NOTE | 2018-07-02 23:07 | RADIOLOGY REPORT (SQ) ---
EXAM DESCRIPTION: XR ELBOW 3 VIEWS COMPLETED DATE/TME: 07/02/2018 21:40 CLINICAL HISTORY: 68 years, Female, radial nerve palsy COMPARISON: EXAM DESCRIPTION: CLINICAL HISTORY: radial nerve palsy COMPARISON: None FINDINGS: 4 view(s) submitted. No fracture or dislocation is identified. Bone marrow attenuation is unremarkable. No radiopaque foreign body is identified. IMPRESSION: No acute fracture or dislocation. NUMBER OF VIEWS: TECHNIQUE: LIMITATIONS: None. FINDINGS: IMPRESSION: 2010 [facility] [employer]- All Rights Reserved
[2018-07-03 00:18] VITALS: BP 136/75
== END 2018-07-03 00:19 | disposition home or self-care (01) ==
LOC: ER 17:12
DX: G56.31 Lesion of radial nerve, right upper limb (principal); N17.9 Acute kidney failure, unspecified; E11.22 Type 2 diabetes mellitus with diabetic chronic kidney disease; I12.9 Hypertensive chronic kidney disease with stage 1 through stage 4 chronic kidney disease, or unspecified chronic kidney disease; N18.9 Chronic kidney disease, unspecified; F17.200 Nicotine dependence, unspecified, uncomplicated
CPT/HCPCS: 99285; 36415; 85025; 80053; 73080; 70450; L3908; A9270 ×2; J3490; J7512

== ENCOUNTER → 2019-01-19 | Outpatient (CLI) | payer MEDICARE, MEDICAID ==
--- NOTE | 2019-01-19 17:58 | EKG REPORT ---
SEVERITY:- OTHERWISE NORMAL ECG - SINUS RHYTHM ATRIAL PREMATURE COMPLEX : Confirmed by: Leyda Golden 19-Jan-2019 17:57:51
== END ==
LOC: OD 13:10
PROVIDERS: ATTEND Physician Assistant Medical
DX: G89.4 Chronic pain syndrome (principal); Z79.899 Other long term (current) drug therapy
CPT/HCPCS: 93005; 93010

== ENCOUNTER 2019-01-28 20:14 | Emergency (ER) | payer MEDICARE, MEDICAID ==
--- NOTE | 2019-01-28 21:10 | RADIOLOGY REPORT (SQ) ---
EXAM DESCRIPTION: XR FOOT 3 OR MORE VIEWS COMPLETED DATE/TME: 01/28/2019 00:00 CLINICAL HISTORY: 69 years, Female, pain ablove right great toe, no injury COMPARISON: EXAM DESCRIPTION: CLINICAL HISTORY: pain ablove right great toe, no injury COMPARISON: None FINDINGS: 3 view(s) submitted. There are degenerative changes. There is a plantar calcaneal spur. No fracture or dislocation is identified. Bone marrow attenuation is unremarkable. No radiopaque foreign body is identified. IMPRESSION: No acute fracture or dislocation. NUMBER OF VIEWS: TECHNIQUE: LIMITATIONS: None. FINDINGS: IMPRESSION: copyright 2010 [employer]- All Rights Reserved
--- NOTE | 2019-01-28 22:18 | ER Document Report ---
HPI - HPI Patient complains to provider of: Broke foot Time Seen by Provider: 01/28/19 21:08 Pain Level: 4 Context: 68-year-old female with diabetes and hypertension presents to the emergency department for chief complaint of a broken right foot. She states she has short-term memory loss and cannot remember what happened. She says she may have fallen but she is not sure. She denies any fever, chills, nausea, vomiting, diarrhea, abdominal pain, weakness in the extremity. - REPRODUCTIVE Reproductive: DENIES: : - MUSCULOSKELETAL Musculoskeletal: REPORTS: Extremity pain - right foot Past Medical History - Social History Smoking Status: Current Every Day Smoker Chew tobacco use (# tins/day): No Frequency of alcohol use: None Drug Abuse: None, Other Family History: Reviewed & Not Pertinent Patient has suicidal ideation: No Patient has homicidal ideation: No - Past Medical History Cardiac Medical History: Reports: Hx Hypertension Denies: Hx Coronary Artery Disease, Hx Heart Attack Pulmonary Medical History: Reports: Hx Asthma, Hx Pneumonia - ABOUT 10 YEARS AGO Denies: Hx Bronchitis, Hx COPD Neurological Medical History: Denies: Hx Cerebrovascular Accident, Hx Seizures Endocrine Medical History: Reports: Hx Diabetes Mellitus Type 2 Renal/ Medical History: Denies: Hx Peritoneal Dialysis Musculoskeletal Medical History: Reports Hx Arthritis Psychiatric Medical History: Denies: Hx Depression Past Surgical History: Denies: Hx Abdominal Surgery, Hx Hysterectomy, Hx Pacemaker - Immunizations Hx Diphtheria, Pertussis, Tetanus Vaccination: No Hx Pneumococcal Vaccination: 08/14/12 Vertical Provider Document - CONSTITUTIONAL Notes: PHYSICAL EXAMINATION: Reviewed vital signs and charting by RN GENERAL: Alert, interacts well. No acute distress. HEAD: Normocephalic, atraumatic. EYES: Pupils equal and round. Extraocular movements intact. EXTREMITIES: Moves all 4 extremities spontaneously. Erythema of the right MTP with edema across the first second and third metatarsals warm to touch NEUROLOGIC: Oriented and appropriate. Normal speech. PSYCH: Normal affect, normal mood. SKIN: Warm, dry, normal turgor. No rashes or lesions noted. - INFECTION CONTROL TRAVEL OUTSIDE OF THE [place] IN LAST 30 DAYS: No Course - Re-evaluation Re-evalutation: 01/28/19 22:22 68-year-old female with diabetes presents with gout versus cellulitis. X-ray negative for fracture dislocation. I will treat her with Keflex and Bactrim and cover her for cellulitis. She has short-term memory loss and does not know if there is any trauma to the area. Patient pulse 100 but in reviewing past records she has been in the mid 90s. Could be related to pain. She is afebrile. I gave her strict return precautions and what to look out for. Stable for discharge. 01/29/19 00:09 - Vital Signs Vital signs: Temp Pulse Resp BP Pulse Ox 99.1 F 100 20 123/65 95 01/28/19 20:18 01/28/19 20:18 01/28/19 20:18 01/28/19 20:18 01/28/19 20:18 Discharge - Discharge Clinical Impression: Cellulitis Condition: Good Disposition: HOME, SELF-CARE Instructions: Cellulitis (OM) Additional Instructions: The rash is likely due to infection of your skin. You need to take the antibiotics as prescribed. Do not stop even if the rash goes away until you have completed all the antibiotics. The area of redness was traced out here in the emergency department with a marking pen. You need to return to emergency department if the redness spreads outside of this area by more than 2 cm in any direction. You should also return if you develop fevers with temperature greater than 101, persistent vomiting, worsening pain, or have any other symptoms that are concerning to you. Prescriptions: Cephalexin Monohydrate [Keflex 500 mg Capsule] 500 mg PO QID #28 capsule Sulfamethoxazole/Trimethoprim [Bactrim Ds Tablet] 1 each PO BID 7 Days #14 tablet Referrals: CAROL VICKERS PA-C [Primary Care Provider] - Follow up as needed
[2019-01-28] MEDS ORDERED: CEFTRIAXONE INJ 1000 MG VIAL IM ONE (22:19)
[2019-01-28] MEDS ORDERED: LIDOCAINE 1% INJ (10 MG/ML) 10 ML MDV INJ ONE (22:19)
[2019-01-28 23:25] VITALS: BP 126/62
== END 2019-01-28 23:25 | disposition home or self-care (01) ==
LOC: ER 20:14
DX: L03.90 Cellulitis, unspecified (principal); M79.671 Pain in right foot; R41.3 Other amnesia; F17.200 Nicotine dependence, unspecified, uncomplicated; I10 Essential (primary) hypertension; J45.909 Unspecified asthma, uncomplicated; E11.9 Type 2 diabetes mellitus without complications
CPT/HCPCS: 99283; 96372; 73630; J0696

== ENCOUNTER → 2019-02-09 | Outpatient (CLI) | payer MEDICARE, MEDICAID ==
--- NOTE | 2019-02-09 18:21 | RADIOLOGY REPORT (SQ) ---
EXAM DESCRIPTION: U/S RETROPERITON LTD COMPLETED DATE/TIME: 02/09/2019 5:34 pm REASON FOR STUDY: N18.3 CHRONIC KIDNEY DISEASE, STAGE 3 (MODERATE) N18.3 CHRONIC KIDNEY DISEASE, ST AGE 3 (MODERATE) COMPARISON: 02/10/2017 TECHNIQUE: Dynamic and static grayscale images acquired of the kidneys and bladder and recorded on P ACS. Additional selected color Doppler and spectral images recorded. LIMITATIONS: None. FINDINGS: RIGHT KIDNEY: Normal size, 10.6 cm. Normal echogenicity. No solid masses. There is a 17 mm complex cystic area. No hydronephrosis. No calcifications. LEFT KIDNEY: Small, 7.5 cm. Normal echogenicity. Possible 19 mm solid mass. No hydronephrosis. No calcifications. BLADDER: Urinary bladder is empty and not evaluated. OTHER FINDINGS: No other significant finding. IMPRESSION: Complex cystic area in the right kidney. Possible solid mass in the left. Recommend CT without with contrast. TECHNICAL DOCUMENTATION: JOB ID: [id number] [employer]- All Rights Reserved Reading location - IP/workstation name: [email or web address]
== END ==
LOC: RAD 17:12
PROVIDERS: ATTEND Internal Medicine
DX: N18.3 Chronic kidney disease, stage 3 (moderate) (principal)
CPT/HCPCS: 76775

== ENCOUNTER → 2019-02-13 | Outpatient (CLI) | payer MEDICARE, MEDICAID ==
--- NOTE | 2019-02-13 15:29 | RADIOLOGY REPORT (SQ) ---
EXAM DESCRIPTION: CT ABD/PELVIS NO ORAL OR IV COMPLETED DATE/TIME: 02/13/2019 1:44 pm REASON FOR STUDY: N28.89 OTHER SPECIFIED DISORDERS OF KIDNEY AND URETER N28.89 OTHER SPECIFIED DISO RDERS OF KIDNEY AND URETER COMPARISON: 01/14/2017. TECHNIQUE: CT scan of the abdomen and pelvis performed without intravenous or oral contrast. Images reviewed with lung, soft tissue, and bone windows. Reconstructed coronal and sagittal MPR images revi ewed. All images stored on PACS. All CT scanners at this facility use dose modulation, iterative reconstruction, and/or weight based d osing when appropriate to reduce radiation dose to as low as reasonably achievable (ALARA). [facility]: Dose Right [facility]: CareDose [facility]: Dose Right [facility]: Teradose 4D [facility]: [employer] RADIATION DOSE: CT Rad equipment meets quality standard of care and radiation dose reduction techniq ues were employed. CTDIvol: 26.6 mGy. DLP: 1329 mGy-cm.mGy. LIMITATIONS: None. FINDINGS: LOWER CHEST: No significant findings. No nodules or infiltrates. NON-CONTRASTED LIVER, SPLEEN, ADRENALS: Sub capsular nodularity in the liver. PANCREAS: No masses. No peripancreatic inflammatory changes. GALLBLADDER: No identified stones by CT criteria. No inflammatory changes to suggest cholecystitis. RIGHT KIDNEY AND URETER: Upper pole cyst measuring just over 1 cm. No suspicious masses. Assessment limited by lack of IV contrast. No significant calcifications. No hydronephrosis or hydroureter. LEFT KIDNEY AND URETER: No suspicious masses. Assessment limited by lack of IV contrast. No signifi cant calcifications. No hydronephrosis or hydroureter. AORTA AND RETROPERITONEUM: No aneurysm. No retroperitoneal masses or adenopathy. BOWEL AND PERITONEAL CAVITY: No obvious masses or inflammatory changes. No free fluid. APPENDIX: Not visualized. PELVIS, BLADDER, AND ABDOMINAL WALL:No abnormal masses. No free fluid. Bladder normal. BONES: No significant findings. OTHER: No other significant finding. IMPRESSION: Right renal cyst. No solid renal masses are identified. COMMENT: Quality ID # [id number]: Final reports with documentation of one or more dose reduction techniques (e.g., Automated exposure control, adjustment of the mA and/or kV according to patient size, use of iterative reconstruction technique) TECHNICAL DOCUMENTATION: JOB ID: [id number] [employer]- All Rights Reserved Reading location - IP/workstation name: [email or web address]
== END ==
LOC: RAD 13:16
PROVIDERS: ATTEND Internal Medicine
DX: N28.1 Cyst of kidney, acquired (principal); N28.89 Other specified disorders of kidney and ureter
CPT/HCPCS: 74176

== ENCOUNTER → 2020-04-11 | Outpatient (CLI) | payer MEDICARE, MEDICAID ==
--- NOTE | 2020-04-11 16:00 | RADIOLOGY REPORT (SQ) ---
EXAM DESCRIPTION: CT CERVICAL SPINE WITHOUT IMAGES COMPLETED DATE/TIME: 04/11/2020 1:56 pm REASON FOR STUDY: M54.12 RADICULOPATHY, CERVICAL REGION M54.12 RADICULOPATHY, CERVICAL REGION COMPARISON: None. TECHNIQUE: Axial images acquired through the cervical spine without intravenous contrast. Images re viewed with lung, soft tissue and bone windows. Reconstructed coronal and sagittal MPR images review ed. Images stored on PACS. All CT scanners at this facility use dose modulation, iterative reconstruction, and/or weight based d osing when appropriate to reduce radiation dose to as low as reasonably achievable (ALARA). [facility]: Dose Right [facility]: CareDose [facility]: Dose Right [facility]: Teradose 4D [facility]: [employer] RADIATION DOSE: CT Rad equipment meets quality standard of care and radiation dose reduction techniq ues were employed. CTDIvol: 22.7 mGy. DLP: 588 mGy-cm. mGy. LIMITATIONS: None. FINDINGS: ALIGNMENT: Mild anterolisthesis of C4 on C5. MINERALIZATION: Normal. VERTEBRAL BODIES: No fractures or dislocation. DISCS: Disc spaces are narrowed from C5 to T1. Marginal osteophytes are present. No significant for aminal stenoses. FACETS, LATERAL MASSES, POSTERIOR ELEMENTS: Hypertrophic facet changes are present in the mid to uppe r cervical spine. HARDWARE: None in the spine. VISUALIZED RIBS: No fractures. LUNG APICES AND SOFT TISSUES: No significant or acute findings. OTHER: No other significant finding. IMPRESSION: Mild anterolisthesis of C4 on C5. Degenerative disc disease and mild spondylosis. Mild facet arthropathy. TECHNICAL DOCUMENTATION: JOB ID: [id number] Quality ID # [id number]: Final reports with documentation of one or more dose reduction techniques (e.g., Au tomated exposure control, adjustment of the mA and/or kV according to patient size, use of iterative reconstruction technique) 2010 [employer]- All Rights Reserved Reading location - IP/workstation name: [email or web address]
== END ==
LOC: RAD 13:39
PROVIDERS: ATTEND Internal Medicine
DX: M50.121 Cervical disc disorder at C4-C5 level with radiculopathy (principal)
CPT/HCPCS: 72125